=== PATIENT | female | born 1965 | race Caucasian/White ===

== ENCOUNTER 2017-07-22 17:57 | Inpatient (IN) | payer OTHER ==
[~2017-07-22] VITALS: Ht 157.5 cm; Wt 89.1 kg
[~2017-07-22 17:57] MED LIST: ERGOCALCIF50000 UNIT PO; KEPPRA750 MG PO; PROBIOTIC1 EAC1 PO; TARCEVA150 MG PO; VALSARTAN160 MG PO
[2017-07-22 19:35] LABS: APPEARANCE CLOUDY ((CLEAR)); BILIRUBIN NEGATIVE; BLOOD NEGATIVE; COLOR YELLOW ((YELLOW)); GLUCOSE (STRIP) NEGATIVE; KETONES NEGATIVE; LEUKOCYTES NEGATIVE; NITRITE NEGATIVE; PROTEIN (STRIP) NEGATIVE; SPECIFIC GRAVITY 1.019 (1.000-1.030); UROBILINOGEN 0.2 MG/DL (0.2-1.0)
[2017-07-22 19:50] LABS: HEMATOCRIT 38.9 % (36.0-46.0); HEMOGLOBIN 13.1 G/DL (11.9-15.5); MCH 26.6 PG (29.0-34.0); MCHC 33.7 G/DL (30.0-36.0); PLATELET COUNT 321 K/uL (156-360); RBC DIS.WIDTH-CV 13.9 % (11.8-14.6); RBC DIS.WIDTH-SD 39.8 % (39-53); RED BLOOD COUNT 4.92 M/uL (3.80-5.20); WHITE BLOOD COUNT 12.1 K/uL (4.1-10.2)
[2017-07-22 19:56] LABS: CHLORIDE 103 mEq/L (99-109); POTASSIUM 3.7 mEq/L (3.7-5.4); SODIUM 135 mEq/L (136-147)
[2017-07-22 19:58] LABS: GLUCOSE 110 mg/dL (70-99)
[2017-07-22 20:02] LABS: CREATININE 0.7 mg/dL (0.6-1.3); GFR ESTIMATE (CALCULATED) > 59 mL/min/
[2017-07-22 20:03] LABS: UREA NITROGEN (BUN) 10 mg/dL (9-23)
[2017-07-22 20:05] LABS: MCV 79.1 FL (83-99)
[2017-07-22 20:30] LABS: EPITHELIAL CELLS RARE /HPF; RED BLOOD CELLS RARE /HPF (0-5); WHITE BLOOD CELLS RARE /HPF (0-5)
[2017-07-22 20:31] LABS: AMORPHOUS URATES CRYSTALS 2+; BACTERIA RARE /HPF; MUCUS TRACE /LPF; UCUL ADDED? NO
[2017-07-23 02:01] LABS: APPEARANCE CLEAR/COLORLESS; CSF TUBE NUMBER TUBE #4
[2017-07-23 02:04] LABS: CSF PROTEIN 48 mg/dL (15-45)
[2017-07-23 02:08] LABS: RED CELL COUNT 113 /MM^3 (0-1); WHITE CELL COUNT 2 /MM^3 (0-5)
[2017-07-23 02:09] LABS: GLUCOSE, CSF 52 mg/dL (40-80)
[2017-07-23 02:44] LABS: CSF EOSINOPHILS 0 % (0-25); MONONUCLEAR WBC'S 64 % (50-90); POLYNUCLEAR WBC'S 36 % (0-3); SPINAL FLD COMMENT ND
[2017-07-23 02:46] LABS: CSF TUBE NUMBER (RECHECK) TUBE #1
[2017-07-23 02:47] LABS: APPEARANCE (RECHECK) CLEAR/COLORLESS; RED CELL COUNT (RECHECK) 116 /MM^3 (0-1)
[2017-07-23 04:31] LABS: HDL CHOLESTEROL 60 MG/DL (Desirable>=50); LDL CHOLESTEROL 135 mg/dL (Desirable<100); NON-HDL CHOLESTEROL 154 mg/dL (Desirable<160); SERUM ETHYL ALCOHOL < 10 mg/dL; TOTAL CHOLESTEROL 214 mg/dL (Desirable<200); TRIGLYCERIDES 93 MG/DL (Normal: <150)
[2017-07-23 09:55] LABS: BENZODIAZEPINES, URINE SCREEN Negative (200 ng/mL)
[2017-07-23 10:02] LABS: HEMOGLOBIN A1c (GLYCOHEMOGLOB) 5.6 % (Below 5.7)
[2017-07-23] MEDS ORDERED: KEPPRA750 MG PO (14:14)
[2017-07-23] MEDS ORDERED: TARCEVA150 MG PO (14:15)
[2017-07-23] MEDS ORDERED: VITAMIN D31000 UNI2 PO (14:16)
[2017-07-23] MEDS ORDERED: LEXAPRO5 MG PO (14:20)
[2017-07-23] MEDS ORDERED: VALSARTAN160 MG PO (14:21)
[2017-07-23 16:44] VITALS: BP 185/91
[2017-07-23 20:08] VITALS: BP 157/85
[2017-07-24 00:24] VITALS: BP 154/76
[2017-07-24 08:19] VITALS: BP 177/78
[2017-07-24 10:25] LABS: HEMATOCRIT 36.2 % (36.0-46.0); HEMOGLOBIN 12.4 G/DL (11.9-15.5); MCH 26.8 PG (29.0-34.0); MCHC 34.3 G/DL (30.0-36.0); MCV 78.2 FL (83-99); PLATELET COUNT 249 K/uL (156-360); RBC DIS.WIDTH-CV 13.8 % (11.8-14.6); RED BLOOD COUNT 4.63 M/uL (3.80-5.20); WHITE BLOOD COUNT 10.2 K/uL (4.1-10.2)
[2017-07-24 10:43] LABS: ALBUMIN 3.7 G/DL (3.2-4.8); ALKALINE PHOSPHATASE 93 IU/L (3-129); ALT (GPT) 12 IU/L (3-49); AST (GOT) 17 IU/L (2-34); CHLORIDE 98 MEQ/L (99-109); CREATININE 0.5 MG/DL (0.6-1.3); GFR ESTIMATE (CALCULATED) > 59 mL/min/; GLUCOSE 101 mg/dL (70-99); POTASSIUM 3.6 MEQ/L (3.7-5.4); SODIUM 130 MEQ/L (136-147); TOTAL BILIRUBIN 0.6 MG/DL (0.0-1.0); TOTAL PROTEIN 6.1 G/DL (6.4-8.3); UREA NITROGEN (BUN) 8 mg/dL (9-23)
[2017-07-24 12:46] VITALS: BP 158/81
[2017-07-24 15:50] VITALS: BP 130/66
[2017-07-25 00:49] VITALS: BP 173/84
[2017-07-25 04:00] VITALS: BP 161/86
[2017-07-25 08:32] VITALS: BP 139/65
[2017-07-25 11:26] LABS: BASOPHIL (%) 0.2 % (0-1); EOSINOPHIL (%) 0 % (0-5); HEMATOCRIT 41.6 % (36.0-46.0); HEMOGLOBIN 14.2 G/DL (11.9-15.5); IMMATURE GRANULOCYTE (%) 0.4 % (0.0-0.7); LYMPHOCYTE (%) 15.4 % (15-42); LYMPHOCYTE COUNT 1.3 K/uL (1.0-2.8); MCH 26.3 PG (29.0-34.0); MCHC 34.1 G/DL (30.0-36.0); MCV 77.2 FL (83-99); MONOCYTE (%) 5.8 % (3-12); MONOCYTE COUNT 0.5 K/uL (0-0.8); NEUTROPHIL (%) 78.2 % (45-76); NEUTROPHIL COUNT 6.5 K/uL (1.8-6.4); PLATELET COUNT 196 K/uL (156-360); RBC DIS.WIDTH-CV 13.8 % (11.8-14.6); RED BLOOD COUNT 5.39 M/uL (3.80-5.20); WHITE BLOOD COUNT 8.3 K/uL (4.1-10.2)
[2017-07-25 11:54] LABS: ALBUMIN 3.7 G/DL (3.2-4.8); ALKALINE PHOSPHATASE 94 IU/L (3-129); ALT (GPT) 13 IU/L (3-49); AST (GOT) 19 IU/L (2-34); CHLORIDE 103 MEQ/L (99-109); CREATININE 0.6 MG/DL (0.6-1.3); GFR ESTIMATE (CALCULATED) > 59 mL/min/; GLUCOSE 106 mg/dL (70-99); POTASSIUM 3.8 MEQ/L (3.7-5.4); SODIUM 134 MEQ/L (136-147); TOTAL BILIRUBIN 0.5 MG/DL (0.0-1.0); TOTAL PROTEIN 6.2 G/DL (6.4-8.3); UREA NITROGEN (BUN) 13 mg/dL (9-23)
[2017-07-25 12:11] VITALS: BP 157/67
[2017-07-25 17:22] VITALS: BP 171/84
[2017-07-25 20:05] VITALS: BP 136/82
[2017-07-26] VITALS (7 sets, daily range): BP systolic 115–160; BP diastolic 60–94
[2017-07-26 07:15] LABS: BASOPHIL (%) 0.2 % (0-1); EOSINOPHIL (%) 0.1 % (0-5); HEMATOCRIT 36.2 % (36.0-46.0); HEMOGLOBIN 12.4 G/DL (11.9-15.5); IMMATURE GRANULOCYTE (%) 0.4 % (0.0-0.7); LYMPHOCYTE (%) 14.2 % (15-42); LYMPHOCYTE COUNT 1.3 K/uL (1.0-2.8); MCHC 34.3 G/DL (30.0-36.0); MCV 78.7 FL (83-99); MONOCYTE (%) 6.8 % (3-12); MONOCYTE COUNT 0.6 K/uL (0-0.8); NEUTROPHIL (%) 78.3 % (45-76); RBC DIS.WIDTH-CV 14.1 % (11.8-14.6); RBC DIS.WIDTH-SD 39.7 % (39-53); WHITE BLOOD COUNT 8.9 K/uL (4.1-10.2)
[2017-07-26 07:35] LABS: ALBUMIN 3.5 G/DL (3.2-4.8); ALKALINE PHOSPHATASE 87 IU/L (3-129); ALT (GPT) 14 IU/L (3-49); AST (GOT) 15 IU/L (2-34); CHLORIDE 110 MEQ/L (99-109); CREATININE 0.6 MG/DL (0.6-1.3); GFR ESTIMATE (CALCULATED) > 59 mL/min/; GLUCOSE 115 mg/dL (70-99); POTASSIUM 3.3 MEQ/L (3.7-5.4); TOTAL BILIRUBIN 0.5 MG/DL (0.0-1.0); TOTAL PROTEIN 5.8 G/DL (6.4-8.3); UREA NITROGEN (BUN) 12 mg/dL (9-23)
[2017-07-26 07:36] LABS: SODIUM 143 MEQ/L (136-147)
[2017-07-26 07:44] LABS: PLATELET COUNT 277 K/uL (156-360)
[2017-07-27 00:05] VITALS: BP 157/92
[2017-07-27 00:09] VITALS: BP 157/92
== END 2017-07-27 01:20 | disposition short-term general hospital (02) | DRG 71 ==
LOC: EME 17:57 → EDOF 07-23 03:01 → 5SOUTH 07-23 03:01 → ENRESERV 07-23 03:04 → EDOF 07-23 09:55 → ENRESERV 07-23 14:32 → 5SOUTH 07-23 16:17
PROVIDERS: Internal Medicine; Physician Assistant
PROC: 009U3ZX Drainage of Spinal Canal, Percutaneous Approach, Diagnostic (ICD-10-PCS; principal; 2017-07-22)
DX: G93.40 Encephalopathy, unspecified (principal); E87.1 Hypo-osmolality and hyponatremia; R47.01 Aphasia; R41.4 Neurologic neglect syndrome; E72.20 Disorder of urea cycle metabolism, unspecified; F05 Delirium due to known physiological condition; I10 Essential (primary) hypertension; G43.801 Other migraine, not intractable, with status migrainosus; G47.10 Hypersomnia, unspecified; G81.91 Hemiplegia, unspecified affecting right dominant side; R29.810 Facial weakness; G40.209 Localization-related (focal) (partial) symptomatic epilepsy and epileptic syndromes with complex partial seizures, not intractable, without status epilepticus; Z60.2 Problems related to living alone; Z92.3 Personal history of irradiation; Z92.21 Personal history of antineoplastic chemotherapy; Z85.841 Personal history of malignant neoplasm of brain; Z85.118 Personal history of other malignant neoplasm of bronchus and lung; Z82.3 Family history of stroke; Z82.0 Family history of epilepsy and other diseases of the nervous system
CPT/HCPCS: 70450; 70553; 71046; 76705; 80048; 80053; 80061; 80306 90; 81003; 82140; 82607; 82945; 83036; 84157; 85025; 85027; 87070; 87205; 87529 90; 88108; 89051; 92610 GN; 93005; 93306; 93880; 95819; 99281; 99285; G0480; J0133; J1100; J1644; J1953; J2060; J2405; J3480; J7030; J7050